=== PATIENT | female | born 1990 | race Caucasian/White ===

== ENCOUNTER 2022-01-19 17:44 | Inpatient (IN) ==
[2022-01-19] MEDS ORDERED: Lactated Ringers 1000 ml BAG 1,000 ML IV ONE (18:46)
[2022-01-19] MEDS ORDERED: Buffered Lidocaine 1% SYRIN 1 ml INTRADERM ONE (18:46)
[2022-01-19] MEDS ORDERED: Dinoprostone 10 MG VAG.SUPP VAGINAL ONE (19:36)
[2022-01-19 21:08] LABS: Urine Benzodiazepine Screen None Detected (None Detect); Urine Cannabinoids Screen None Detected (None Detect); Urine Opiates Screen None Detected (None Detect)
[2022-01-20] MEDS: Lactated Ringers 1000 ml BAG 1,000 ML IV SCH (19:50)
[2022-01-20] MEDS ORDERED: Oxytocin in LR 20 UNITS/1,000 ML BAG IVPB SCH (20:00)
[2022-01-20 20:16] LABS: ABS Eosinophils 0.1 10^3/ul (0-0.6); ABS Lymphocytes 1.8 10^3/ul (1.0-4.8); ABS Monocytes 0.9 10^3/ul (0-0.8); Eosinophil % 0.7 %; Hematocrit 43 % (35-47); Hemoglobin 14.6 g/dL (12.0-16.0); Lymphocyte % 15.3 %; Mean Corpuscular HGB Conc 34 g/dL (31-36); Mean Corpuscular Hemoglobin 31 pg (27-31); Mean Corpuscular Volume 91 fL (80-97); Platelet Count 184 10^3/uL (150-450); Red Blood Count 4.71 10^6 /uL (3.70-4.87); Red Cell Distribution Width 13 % (10-15); White Blood Count 11.7 10^3/uL (3.5-10.8)
[2022-01-21] MEDS ORDERED: OBEPIDURAL (200 ML) 0 ML EPIDURAL ONE (02:45)
[2022-01-21] MEDS ORDERED: Lidocaine 1.5% EPI 1:200,000 30 ML SDV ONE (03:05)
[2022-01-21] MEDS ORDERED: Sodium Citrate/Citric Acid LIQ 15 ML UDC PO PRN (03:22)
[2022-01-21] MEDS ORDERED: Phenylephrine 40 mcg/mL 10mL (400mcg) SYRINGE IV PUSH PRN ×2 (03:22)
[2022-01-21] MEDS ORDERED: Lactated Ringers 1000 ml BAG 500 ML IV PRN (03:22)
[2022-01-21] MEDS ORDERED: EPHEDrine (Pressors) 50 MG/ML VIAL IV PUSH PRN ×2 (03:22)
[2022-01-21] MEDS ORDERED: Lactated Ringers 1000 ml BAG 1,000 ML IV ONE (03:22)
[2022-01-21] MEDS: Lactated Ringers 1000 ml BAG 1,000 ML IV SCH (03:59)
[2022-01-21] MEDS ORDERED: OBEPIDURAL (200 ML) 200 ML EPIDURAL SCH (04:00)
[2022-01-21] MEDS ORDERED: Lactated Ringers 1000 ml BAG 1,000 ML IV SCH ×3 (04:00→10:00)
[2022-01-21 04:28] LABS: Urine Appearance Clear; Urine Bilirubin Negative (Negative); Urine Blood Negative (Negative); Urine Color Straw; Urine Glucose Negative (Negative); Urine Ketones Trace (Negative); Urine Nitrite Negative (Negative); Urine Protein Negative (Negative); Urine Specific Gravity 1.005 (1.002-1.030); Urine Urobilinogen Negative (Negative)
[2022-01-21] MEDS ORDERED: ceFOXitin 2 GM IVPREMIX 2 GM/50 ML BAG ONE (07:57)
[2022-01-21] MEDS ORDERED: fentaNYL 250 mcg/5 ml 50 MCG/ML 5 ml VIAL (250 MCG) ONE (08:10)
[2022-01-21] MEDS ORDERED: Midazolam 5 mg/5 ml VIAL 1 mg/ml 5 ml VIAL (5 mg) ONE (08:11)
[2022-01-21] MEDS ORDERED: Lidocaine 2% w/ EPI 1:200,000 MPF 20 ML SDV VIAL ONE ×2 (08:12→08:31)
[2022-01-21] MEDS ORDERED: Ondansetron 4 mg VIAL 2 MG/ML 2 ml VIAL ONE (08:13)
[2022-01-21] MEDS ORDERED: Acetaminophen IV 1 GM/100ML 100 ML IV ONE (08:13)
[2022-01-21] MEDS ORDERED: Succinylcholine 200 mg VIAL 20 mg/ml 10 ml VIAL (200 mg) ONE (08:13)
[2022-01-21] MEDS ORDERED: Propofol 10 MG/ML 20 ML BTL ONE (08:13)
[2022-01-21] MEDS ORDERED: Scopolamine 1 mg/72hr PATCH ONE (08:17)
[2022-01-21] MEDS ORDERED: Phenylephrine 40 mcg/mL 10mL (400mcg) SYRINGE ONE (08:20)
[2022-01-21] MEDS ORDERED: fentaNYL 100 mcg/2 ml 50 MCG/ML VIAL ONE (08:30)
[2022-01-21] MEDS ORDERED: Morphine PF AMP (0.5MG/ML) 5 MG/10 ML AMP ONE (08:31)
[2022-01-21] MEDS ORDERED: EPHEDrine (Pressors) 50 MG/ML VIAL ONE (08:36)
[2022-01-21] MEDS ORDERED: Atropine 1 MG/ML INJ 1 ML VIAL ONE (08:36)
[2022-01-21] MEDS ORDERED: Dibucaine 1% OINT 28.35 GM TUBE PR PRN (09:02)
[2022-01-21] MEDS ORDERED: Witch Hazel PAD JAR TOPICAL PRN (09:02)
[2022-01-21] MEDS ORDERED: Glycerin ADULT 2.4 gm SUPP PR PRN (09:02)
[2022-01-21] MEDS ORDERED: Ondansetron 4 mg VIAL 2 MG/ML 2 ml VIAL IV PRN ×2 (09:07→09:10)
[2022-01-21] MEDS ORDERED: fentaNYL 100 mcg/2 ml 50 MCG/ML VIAL IV PRN (09:07)
[2022-01-21] MEDS ORDERED: Naloxone 0.4 mg VIAL 0.4 mg/ml 1 ml VIAL IV PRN ×2 (09:07→09:10)
[2022-01-21] MEDS ORDERED: Scopolamine 1 mg/72hr PATCH TRANSDERM PRN (09:10)
[2022-01-21] MEDS ORDERED: diPHENhydraMINE IV 50 MG/ML 1 ml VIAL (BENADRYL) IV PRN (09:10)
[2022-01-21] MEDS ORDERED: Oxytocin in LR 20 UNITS/1,000 ML BAG IVPB SCH (10:00)
[2022-01-21] MEDS ORDERED: HYDROmorphone 1 MG/1 ML SYRINGE IV PRN (10:22)
[2022-01-21] MEDS: HYDROcodone/ACETAMIN 5/325 mg TAB PO PRN ×2 (13:58→20:23)
[2022-01-21] MEDS ORDERED: HYDROcodone/ACETAMIN 5/325 mg TAB PO PRN (14:00)
[2022-01-22 07:34] LABS: ABS Lymphocytes 1.1 10^3/ul (1.0-4.8); ABS Neutrophils 8.8 10^3/ul (1.5-7.7); Eosinophil % 0.3 %; Hematocrit 35 % (35-47); Hemoglobin 12.2 g/dL (12.0-16.0); Lymphocyte % 10.1 %; Mean Corpuscular HGB Conc 35 g/dL (31-36); Mean Corpuscular Hemoglobin 32 pg (27-31); Mean Corpuscular Volume 91 fL (80-97); Mean Platelet Volume 9.5 fL (7.4-10.4); Platelet Count 153 10^3/uL (150-450); Red Blood Count 3.85 10^6 /uL (3.70-4.87); Red Cell Distribution Width 13 % (10-15)
[2022-01-22] MEDS ORDERED: HYDROcodone/ACETAMIN 5/325 mg TAB PO PRN (11:43)
[2022-01-24 08:24] VITALS: BP 121/67
== END 2022-01-24 15:15 | disposition home or self-care (01) | DRG 540 ==
LOC: MCHOBOUT 17:44 → MCHOB 18:56
PROVIDERS: ADMIT Advanced Practice Midwife; ATTEND Obstetrics & Gynecology